=== PATIENT | male | born 2005 | race Caucasian/White ===

== ENCOUNTER 2024-12-31 09:00 | Day surgery (SDC) | payer BC, OTHER ==
[2024-12-31 17:00] VITALS: BP 130/72
== END 2024-12-31 17:56 | disposition home or self-care (01) ==
LOC: ATC 09:00
DX: C62.12 Malignant neoplasm of descended left testis (principal); J45.909 Unspecified asthma, uncomplicated; F17.290 Nicotine dependence, other tobacco product, uncomplicated; Z91.018 Allergy to other foods
CPT/HCPCS: 36569; C1751